=== PATIENT | female | born 1930 | race Caucasian/White ===

== ENCOUNTER 2017-10-16 12:38 | Emergency (ER) | payer MEDICARE, OTHER ==
[~2017-10-16] VITALS: Ht 149.9 cm; Wt 71.0 kg
[~2017-10-16 12:38] MED LIST: 1-ME1LIQ PO; ASPI81 PO; CALTTAB2 PO; CENTTAB9 PO; DIPH1TAB36 PO; ESTR0.5T PO; FISH1200; FURO1TAB93 PO; KLOR20TA6 PO; NEXI40CA PO; TOPR200T PO; VESI10TA4 PO; VITA100017 PO
[2017-10-16 12:50] VITALS: BP 145/63; PULSE 90; RESP 18; TEMP 98.2; O2SAT 95
[2017-10-16] MEDS ORDERED: ESTR1TAB PO (13:07)
[2017-10-16] MEDS ORDERED: AMLO10TA2 PO (13:07)
[2017-10-16] MEDS ORDERED: K-DUR PO (13:07)
[2017-10-16] MEDS ORDERED: ASPI-516 CHEW (13:07)
[2017-10-16] MEDS ORDERED: FURO1TAB60 PO (13:07)
[2017-10-16] MEDS ORDERED: DOXY100C PO (13:07)
[2017-10-16] MEDS ORDERED: METO50TA PO (13:07)
[2017-10-16] MEDS ORDERED: OXYB5TAB8 PO (13:07)
[2017-10-16 13:38] VITALS: O2SAT 96
[2017-10-16 13:50] LABS: AUTOMATED NEUTROPHIL # 13.2 TH/MM3 (1.8-7.7); BASOPHIL # 0.4 TH/MM3 (0-0.2); BASOPHIL % 2.4 % (0.0-2.0); EOSINOPHIL # 0.2 TH/MM3 (0-0.4); EOSINOPHIL % 1.4 % (0.0-4.0); HEMOGLOBIN 12.1 GM/DL (11.6-15.3); LYMPH % 7.9 % (9.0-44.0); LYMPHOCYTE # 1.3 TH/MM3 (1.0-4.8); MEAN CELL VOLUME 86.3 FL (80.0-100.0); MEAN CORPUSCULAR HEMOGLOBIN 28.9 PG (27.0-34.0); MEAN CORPUSCULAR HGB CONC 33.5 % (32.0-36.0); MEAN PLATELET VOLUME 7.2 FL (7.0-11.0); MONO % 5.3 % (0.0-8.0); MONOCYTE # 0.8 TH/MM3 (0-0.9); PLATELET COUNT 329 TH/MM3 (150-450); RED BLOOD COUNT 4.17 MIL/MM3 (4.00-5.30); RED CELL DISTRIBUTION WIDTH 13.3 % (11.6-17.2); WHITE BLOOD COUNT 15.9 TH/MM3 (4.0-11.0)
--- NOTE | 2017-10-16 13:52 | PD ---
HPI Chief Complaint: General Weakness Time Seen by Provider: 13:31 Travel History International Travel<30 days: No Contact w/Intl Traveler<30days: No Traveled to known affect area: No History of Present Illness HPI 87-year-old female complains of generalized malaise and weakness. Patient was given antibiotic for UTI recently. Patient was diagnosed with URI and sinus infection 3 days ago. Patient was given prescription for doxycycline. Patient states that she had persistent generalized malaise and weakness and nausea despite the medication. Patient states that she has increasing aching back low back pain recently. Patient denies any headache. Patient denies any earaches or sore throat. Patient denies any coughing. Patient denies abdominal pain. Patient states that she has nausea but no vomiting or diarrhea. Patient denies any dysuria frequency. Patient denies any vaginal discharge or bleeding. PFSH Past Medical History Arthritis: Yes High Cholesterol: Yes Diminished Hearing: No Genitourinary: Yes Hypertension: Yes Respiratory: Yes Tetanus Vaccination: < 5 Years Influenza Vaccination: Yes ?: Not Menopausal: Yes Past Surgical History Cholecystectomy: Yes Genitourinary Surgery: Yes (BLADDER) Hysterectomy: Yes Joint Replacement: Yes (KNEE) Tonsillectomy: Yes Social History Alcohol Use: Yes (1 COCKTAILS PER EVENING) Tobacco Use: No Substance Use: No Allergies-Medications (Allergen,Severity, Reaction): Coded Allergies: Sulfa (Sulfonamide Antibiotics) (Unverified Allergy, Severe, Anaphylaxis, 10/16/17) Reported Meds & Prescriptions Reported Meds & Active Scripts Active Reported Aspirin 81 Mg Chew 81 Mg CHEW DAILY Ditropan (Oxybutynin Chloride) 5 Mg Tab 5 Mg PO DAILY Estradiol 1 Mg Tab Unknown Dose PO DAILY [K-Dur] 20 Meq PO DAILY Lasix (Furosemide) 40 Mg Tab 40 Mg PO DAILY Amlodipine (Amlodipine Besylate) 10 Mg Tab Unknown Dose PO DAILY Metoprolol Tartrate 50 Mg Tab 50 Mg PO DAILY Doxycycline Hyclate 100 Mg Cap 100 Mg PO BID Review of Systems General / Constitutional: No: Fever Eyes: No: Visual changes HENT: No: Headaches Cardiovascular: No: Chest Pain or Discomfort Respiratory: No: Shortness of Breath Gastrointestinal: No: Abdominal Pain Genitourinary: No: Dysuria Musculoskeletal: No: Pain Skin: No Rash Neurologic: No: Weakness Psychiatric: No: Depression Endocrine: No: Polydipsia Hematologic/Lymphatic: No: Easy Bruising Physical Exam Narrative GENERAL: Well-nourished, well-developed patient. SKIN: Focused skin assessment warm/dry. HEAD: Normocephalic. EYES: No scleral icterus. No injection or drainage. NECK: Supple, trachea midline. No JVD or lymphadenopathy. CARDIOVASCULAR: Regular rate and rhythm without murmurs, gallops, or rubs. RESPIRATORY: Breath sounds equal bilaterally. No accessory muscle use. GASTROINTESTINAL: Abdomen soft, non-tender, nondistended. MUSCULOSKELETAL: No cyanosis, or edema. BACK: Nontender without obvious deformity. No CVA tenderness. Neurologic exam normal. Data Data Last Documented VS Vital Signs Date Time Temp Pulse Resp B/P (MAP) Pulse Ox O2 Delivery O2 Flow Rate FiO2 10/16/17 13:38 96 Room Air 10/16/17 12:50 98.2 90 18 145/63 (90) Orders Orders Urinalysis - C+S If Indicated (10/16/17 12:40) Electrocardiogram (10/16/17 13:37) Complete Blood Count With Diff (10/16/17 13:37) Comprehensive Metabolic Panel (10/16/17 13:37) Troponin I (10/16/17 13:37) Thyroid Stimulating Hormone (10/16/17 13:37) Influenzae A/B Antigen (10/16/17 13:37) Chest, Single Ap (10/16/17 13:37) Iv Access Insert/Monitor (10/16/17 13:37) Ecg Monitoring (10/16/17 13:37) Oximetry (10/16/17 13:37) Labs Laboratory Tests Test 10/16/17 13:45 White Blood Count 15.9 TH/MM3 Red Blood Count 4.17 MIL/MM3 Hemoglobin 12.1 GM/DL Hematocrit 36.0 % Mean Corpuscular Volume 86.3 FL Mean Corpuscular Hemoglobin 28.9 PG Mean Corpuscular Hemoglobin Concent 33.5 % Red Cell Distribution Width 13.3 % Platelet Count 329 TH/MM3 Mean Platelet Volume 7.2 FL Neutrophils (%) (Auto) 83.0 % Lymphocytes (%) (Auto) 7.9 % Monocytes (%) (Auto) 5.3 % Eosinophils (%) (Auto) 1.4 % Basophils (%) (Auto) 2.4 % Neutrophils # (Auto) 13.2 TH/MM3 Lymphocytes # (Auto) 1.3 TH/MM3 Monocytes # (Auto) 0.8 TH/MM3 Eosinophils # (Auto) 0.2 TH/MM3 Basophils # (Auto) 0.4 TH/MM3 CBC Comment AUTO DIFF Differential Comment AUTO DIFF CONFIRMED Toxic Granulation 1+ Platelet Estimate NORMAL Platelet Morphology Comment NORMAL Red Cell Morphology Comment NORMAL Blood Urea Nitrogen 11 MG/DL Creatinine 0.82 MG/DL Random Glucose 155 MG/DL Total Protein 7.2 GM/DL Albumin 2.6 GM/DL Calcium Level 9.1 MG/DL Alkaline Phosphatase 83 U/L Aspartate Amino Transf (AST/SGOT) 14 U/L Alanine Aminotransferase (ALT/SGPT) 18 U/L Total Bilirubin 0.4 MG/DL Sodium Level 133 MEQ/L Potassium Level 3.3 MEQ/L Chloride Level 100 MEQ/L Carbon Dioxide Level 25.2 MEQ/L Anion Gap 8 MEQ/L Estimat Glomerular Filtration Rate 66 ML/MIN Troponin I LESS THAN 0.02 NG/ML Thyroid Stimulating Hormone 3rd Gen 0.512 uIU/ML MDM Medical Decision Making Medical Screen Exam Complete: Yes Emergency Medical Condition: Yes Interpretation(s) 1503 p.m. Last Impressions Chest X-Ray 10/16/17 1337 Signed Impressions: Service Date/Time: Monday, October 16, 2017 13:46 - CONCLUSION: The lungs are clear. Ta Montalvo MD 1503 p.m. CBC WBC 15.9. 83 neutrophil. Sodium 133. Potassium 3.3. Cardiac enzymes are normal. Influenza AB antigen negative. Differential Diagnosis Differential diagnosis including viral syndrome, electrolyte imbalance, dehydration, pneumonia, UTI Narrative Course 87-year-old female with generalized malaise and weakness. Patient on doxycycline for URI and sinus infection. Eric Arboleda MD Oct 16, 2017 13:52
[2017-10-16 14:09] LABS: CHLORIDE 100 MEQ/L (98-107); SODIUM (NA) 133 MEQ/L (136-145)
[2017-10-16 14:12] LABS: ALBUMIN 2.6 GM/DL (3.4-5.0); BICARBONATE 25.2 MEQ/L (21.0-32.0); BLOOD UREA NITROGEN 11 MG/DL (7-18); CALCIUM 9.1 MG/DL (8.5-10.1); GLUCOSE,RANDOM 155 MG/DL (74-106)
[2017-10-16 14:15] LABS: ALT (GPT) 18 U/L (10-53); AST (GOT) 14 U/L (15-37); CREATININE 0.82 MG/DL (0.50-1.00); GLOMERULAR FILTRATION RATE 66 ML/MIN (>89)
--- NOTE | 2017-10-16 14:16 | RADRPT ---
EXAM DATE/TIME: 10/16/2017 13:46 [facility] COMPARISON: No previous studies available for comparison. INDICATIONS : Short of Breath MEDICAL HISTORY : None. SURGICAL HISTORY : None. ENCOUNTER: Initial ACUITY: 1 day PAIN SCORE: 0/10 LOCATION: chest FINDINGS: A single view of the chest demonstrates the lungs to be symmetrically aerated without evidence of mas s, infiltrate or effusion. The cardiomediastinal contours are unremarkable. Osseous structures are intact. CONCLUSION: The lungs are clear. Ta Montalvo MD on October 16, 2017 at 14:14 Board Certified Radiologist. This report was verified electronically.
[2017-10-16 14:17] LABS: TOTAL BILIRUBIN ADULT 0.4 MG/DL (0.2-1.0); TOTAL PROTEIN 7.2 GM/DL (6.4-8.2)
[2017-10-16 14:18] LABS: ALKALINE PHOSPHATASE 83 U/L (45-117)
[2017-10-16 14:20] LABS: TROPONIN I LESS THAN 0.02 NG/ML (0.02-0.05)
[2017-10-16 14:23] LABS: TOXIC GRANULATION 1+ (NORMAL)
--- NOTE | 2017-10-16 15:14 | PD ---
Physical Exam Date Seen by Provider: Oct 16, 2017 Time Seen by Provider: 15:12 Narrative The patient is a 87-year-old female who was initially evaluated by the previous physician, Dr. Arboleda. Please refer to the initial history, physical , diagnostic evaluation, and treatment modality plan. Data Data Last Documented VS Vital Signs Date Time Temp Pulse Resp B/P (MAP) Pulse Ox O2 Delivery O2 Flow Rate FiO2 10/16/17 13:38 96 Room Air 10/16/17 12:50 98.2 90 18 145/63 (90) Orders Orders Urinalysis - C+S If Indicated (10/16/17 12:40) Electrocardiogram (10/16/17 13:37) Complete Blood Count With Diff (10/16/17 13:37) Comprehensive Metabolic Panel (10/16/17 13:37) Troponin I (10/16/17 13:37) Thyroid Stimulating Hormone (10/16/17 13:37) Influenzae A/B Antigen (10/16/17 13:37) Chest, Single Ap (10/16/17 13:37) Iv Access Insert/Monitor (10/16/17 13:37) Ecg Monitoring (10/16/17 13:37) Oximetry (10/16/17 13:37) Blood Culture (10/16/17 15:10) Lactic Acid (10/16/17 15:10) Ed Discharge Order (10/16/17 16:25) Labs Laboratory Tests Test 10/16/17 13:45 10/16/17 15:15 10/16/17 15:20 White Blood Count 15.9 TH/MM3 Red Blood Count 4.17 MIL/MM3 Hemoglobin 12.1 GM/DL Hematocrit 36.0 % Mean Corpuscular Volume 86.3 FL Mean Corpuscular Hemoglobin 28.9 PG Mean Corpuscular Hemoglobin Concent 33.5 % Red Cell Distribution Width 13.3 % Platelet Count 329 TH/MM3 Mean Platelet Volume 7.2 FL Neutrophils (%) (Auto) 83.0 % Lymphocytes (%) (Auto) 7.9 % Monocytes (%) (Auto) 5.3 % Eosinophils (%) (Auto) 1.4 % Basophils (%) (Auto) 2.4 % Neutrophils # (Auto) 13.2 TH/MM3 Lymphocytes # (Auto) 1.3 TH/MM3 Monocytes # (Auto) 0.8 TH/MM3 Eosinophils # (Auto) 0.2 TH/MM3 Basophils # (Auto) 0.4 TH/MM3 CBC Comment AUTO DIFF Differential Comment AUTO DIFF CONFIRMED Toxic Granulation 1+ Platelet Estimate NORMAL Platelet Morphology Comment NORMAL Red Cell Morphology Comment NORMAL Blood Urea Nitrogen 11 MG/DL Creatinine 0.82 MG/DL Random Glucose 155 MG/DL Total Protein 7.2 GM/DL Albumin 2.6 GM/DL Calcium Level 9.1 MG/DL Alkaline Phosphatase 83 U/L Aspartate Amino Transf (AST/SGOT) 14 U/L Alanine Aminotransferase (ALT/SGPT) 18 U/L Total Bilirubin 0.4 MG/DL Sodium Level 133 MEQ/L Potassium Level 3.3 MEQ/L Chloride Level 100 MEQ/L Carbon Dioxide Level 25.2 MEQ/L Anion Gap 8 MEQ/L Estimat Glomerular Filtration Rate 66 ML/MIN Troponin I LESS THAN 0.02 NG/ML Thyroid Stimulating Hormone 3rd Gen 0.512 uIU/ML Urine Collection Type CLEAN CATCH Urine Color YELLOW Urine Turbidity CLEAR Urine pH 5.5 Urine Specific [place] LESS/EQUAL 1.005 Urine Protein NEG mg/dL Urine Glucose (UA) NEG mg/dL Urine Ketones NEG mg/dL Urine Occult Blood NEG Urine Nitrite NEG Urine Bilirubin NEG Urine Urobilinogen 0.2 MG/DL Urine Leukocyte Esterase NEG Urine WBC 3-5 /hpf Urine Squamous Epithelial Cells 0-5 /hpf Urine Bacteria OCC /hpf Urine Fine Granular Casts 0-2 /lpf Urine Mucus OCC /lpf Microscopic Urinalysis Comment CULT NOT INDICATED Lactic Acid Level 1.1 mmol/L [facility] Medical Record Reviewed: Yes Supervised Visit with INO: No Interpretation(s) EKG reveals sinus rhythm with first-degree AV block, NH 2 and 25 ms. Q-wave noted in lead III. Date/Time Source Procedure Growth Status 10/16/17 13:45 Nasal Washing Influenza Types A,B Antigen (RADHA) - Final NEGATIVE FOR FLU A AND B ANTIGEN.... Complete Last Impressions Chest X-Ray 10/16/17 2527 Signed Impressions: Service Date/Time: Monday, October 16, 2017 13:46 - CONCLUSION: The lungs are clear. Ta Montalvo MD Laboratory Tests Test 10/16/17 13:45 10/16/17 15:15 10/16/17 15:20 White Blood Count 15.9 TH/MM3 Red Blood Count 4.17 MIL/MM3 Hemoglobin 12.1 GM/DL Hematocrit 36.0 % Mean Corpuscular Volume 86.3 FL Mean Corpuscular Hemoglobin 28.9 PG Mean Corpuscular Hemoglobin Concent 33.5 % Red Cell Distribution Width 13.3 % Platelet Count 329 TH/MM3 Mean Platelet Volume 7.2 FL Neutrophils (%) (Auto) 83.0 % Lymphocytes (%) (Auto) 7.9 % Monocytes (%) (Auto) 5.3 % Eosinophils (%) (Auto) 1.4 % Basophils (%) (Auto) 2.4 % Neutrophils # (Auto) 13.2 TH/MM3 Lymphocytes # (Auto) 1.3 TH/MM3 Monocytes # (Auto) 0.8 TH/MM3 Eosinophils # (Auto) 0.2 TH/MM3 Basophils # (Auto) 0.4 TH/MM3 CBC Comment AUTO DIFF Differential Comment AUTO DIFF CONFIRMED Toxic Granulation 1+ Platelet Estimate NORMAL Platelet Morphology Comment NORMAL Red Cell Morphology Comment NORMAL Blood Urea Nitrogen 11 MG/DL Creatinine 0.82 MG/DL Random Glucose 155 MG/DL Total Protein 7.2 GM/DL Albumin 2.6 GM/DL Calcium Level 9.1 MG/DL Alkaline Phosphatase 83 U/L Aspartate Amino Transf (AST/SGOT) 14 U/L Alanine Aminotransferase (ALT/SGPT) 18 U/L Total Bilirubin 0.4 MG/DL Sodium Level 133 MEQ/L Potassium Level 3.3 MEQ/L Chloride Level 100 MEQ/L Carbon Dioxide Level 25.2 MEQ/L Anion Gap 8 MEQ/L Estimat Glomerular Filtration Rate 66 ML/MIN Troponin I LESS THAN 0.02 NG/ML Thyroid Stimulating Hormone 3rd Gen 0.512 uIU/ML Urine Collection Type CLEAN CATCH Urine Color YELLOW Urine Turbidity CLEAR Urine pH 5.5 Urine Specific [place] LESS/EQUAL 1.005 Urine Protein NEG mg/dL Urine Glucose (UA) NEG mg/dL Urine Ketones NEG mg/dL Urine Occult Blood NEG Urine Nitrite NEG Urine Bilirubin NEG Urine Urobilinogen 0.2 MG/DL Urine Leukocyte Esterase NEG Urine WBC 3-5 /hpf Urine Squamous Epithelial Cells 0-5 /hpf Urine Bacteria OCC /hpf Urine Fine Granular Casts 0-2 /lpf Urine Mucus OCC /lpf Microscopic Urinalysis Comment CULT NOT INDICATED Lactic Acid Level 1.1 mmol/L Differential Diagnosis Differential diagnosis includes UTI, symptomatic anemia, dehydration, hypothyroidism, NSTEMI, pneumonia, influenza, viral syndrome, sepsis, bacteremia. Narrative Course Patient was initially evaluated by the previous physician, Dr. Arboleda. Please refer to the initial history, physical, diagnostic evaluation, and treatment modality plan. The patient was signed out at 3 PM with UA, lactic acid, blood culture pending. White count is mildly elevated at 15.9. BUN and creatinine are normal. UA is negative. Influenza screen is negative. Chest x-ray is negative. Blood cultures are pending. Lactic acid is normal at 1.1. Patient recently had a virus with fever blister and UTI, finished Macrobid and then started taking doxycycline for possible sinusitis. Patient appears well, vitals are normal, she is advised to follow-up with Dr. black on an outpatient basis. She will be provided a copy of her lab work, fluid results, chest x-ray results at discharge. Return if symptoms worsen or progress. Diagnosis Primary Impression: Malaise and fatigue Additional Impression: Leukocytosis Qualified Codes: D72.829 - Elevated white blood cell count, unspecified Patient Instructions: General Instructions Additional Instruction: Please provide the patient a copy of her fluid results, chest x-ray results, lab results at discharge. Follow-up with her primary physician. Return if symptoms worsen or progress. Med/Other Pt SpecificInfo: No Change to Meds Disposition: 01 DISCHARGE HOME Condition: Stable Ever Cord[place] MD Oct 16, 2017 15:14
[2017-10-16 15:19] LABS: BILIRUBIN, URINE NEG (NEG); BLOOD, URINE NEG (NEG); GLUCOSE,URINE NEG (NEG); KETONE, URINE NEG (NEG); NITRITE,URINE NEG (NEG); PH, URINE 5.5 (5.0-8.5); URINE COLOR YELLOW (YELLW/STRAW); URINE LEUKOCYTE ESTERASE NEG (NEG)
[2017-10-16 15:28] LABS: MUCUS URINE OCC /lpf (OCC); SQUAMOUS EPITHELIAL CELL URINE 0-5 /hpf (0-5)
[2017-10-16 15:29] LABS: BACTERIA, URINE OCC /hpf
[2017-10-16 16:36] VITALS: BP 125/65
[2017-10-17] MEDS ORDERED: POTA-163 PO (11:53)
--- NOTE | 2017-10-17 16:18 | EKG ---
Date Performed: 10/16/2017 Time Performed: 13:53:38 PTAGE: 87 years EKG: Sinus rhythm WITH FIRST DEGREE AV BLOCK ABNORMAL ECG NO PREVIOUS TRACING DOCTOR: Maxx Coyne Interpretating Date/Time 10/17/2017 16:14:53
== END 2017-10-16 16:45 | disposition home or self-care (01) ==
LOC: PHED 12:38
DX: R53.81 Other malaise (principal); R53.83 Other fatigue; D72.829 Elevated white blood cell count, unspecified; R94.31 Abnormal electrocardiogram [ECG] [EKG]; E78.00 Pure hypercholesterolemia, unspecified; I10 Essential (primary) hypertension
CPT/HCPCS: 71045; 80053; 81001; 83605; 84443; 84484; 85025; 87040; 87804; 93005; 99285